=== PATIENT | male | born 1965 | race Caucasian/White ===

== ENCOUNTER → 2018-05-02 | Outpatient (CLI) | payer OTHER ==
[~2018-05-02] MED LIST: ASPI81TA28 PO; ESCI10TA17 PO; IRBE-37 PO; MULT-506 PO; PRAV40TA PO; TRIATAB3 PO
--- NOTE | 2018-05-02 09:06 | DIAGNOSTIC IMAGING REPORT ---
THYROID ULTRASONOGRAPHY CLINICAL HISTORY: R94.6 Abnormal thyroid function [id number] COMPARISON STUDY: No previous studies for comparison. FINDINGS: The examination was somewhat difficult from a technical standpoint due to the patient's body habitus. The right lobe of the thyroid measured 43 x 18 x 19 mm. Left lobe of thyroid measures 42 x 19 x 14 mm. No thyroid nodules are visualized. IMPRESSION: 1. Technically difficult study 2. No thyroid nodules identified Electronically signed by: Geoffrey Preston M.D. 05/02/2018 9:05 AM Dictated Date/Time: 05/02/2018 9:04 AM
== END | disposition home or self-care (01) ==
LOC: C.ULTR 08:41
PROVIDERS: ATTEND Internal Medicine Endocrinology, Diabetes & Metabolism
DX: R94.6 Abnormal results of thyroid function studies (principal)